=== PATIENT | female | born 1960 | race American Indian/Alaskan Native ===

== ENCOUNTER 2016-12-11 16:41 | Emergency (ER) | payer BC ==
[2016-12-11] MEDS ORDERED: NACL 0.9% 1000 ML 1,000 ML IV ONE (18:48)
[2016-12-11 19:49] LABS: Basophils % (Auto) 1.3 % (0.0-1.8); Eosinophils % (Auto) 1.9 % (0.0-4.3); Hematocrit 37.8 % (30.3-42.9); Hemoglobin 12.4 gm/dl (10.1-14.3); Mean Corpuscular HGB Conc 33 % (30-34); Mean Corpuscular Hemoglobin 33 pg (28-32); Mean Corpuscular Volume 101 fl (79-97); Platelet Count 325 K/mm3 (140-440); Red Blood Count 3.74 M/mm3 (3.65-5.03); Red Cell Distribution Width 16.7 % (13.2-15.2); White Blood Count 7.6 K/mm3 (4.5-11.0)
[2016-12-11 19:56] LABS: Alanine Aminotransferase 15 units/L (7-56); Albumin 4.3 g/dL (3.9-5); Albumin/Globulin Ratio 1.1 %; Alkaline Phosphatase 87 units/L (35-129); Anion Gap 17 mmol/L; BUN/Creatinine Ratio 42; Blood Urea Nitrogen 21 mg/dL (7-17); Calcium 9.5 mg/dL (8.4-10.2); Carbon Dioxide 25 mmol/L (22-30); Chloride 99.6 mmol/L (98-107); Glucose 118 mg/dL (65-100); Lipase 36 units/L (13-60); Potassium 3.9 mmol/L (3.6-5.0); Sodium 138 mmol/L (137-145); Total Protein 8.2 g/dL (6.3-8.2)
[2016-12-11 19:59] LABS: INR 0.89 (0.87-1.13)
[2016-12-11 20:00] LABS: Partial Thromboplastin Time 31.5 Sec. (24.2-36.6)
[2016-12-12 09:14] VITALS: BP 135/80
--- NOTE | 2016-12-12 10:47 | Emergency Department Report ---
HPI - General Chief Complaint: GI Bleed Time Seen by Provider: 12/12/16 10:30 - HPI HPI: This is a 56 year-old female who presents to the emergency department from home with complaint of bright red blood per rectum with bowel movements that occurred twice over the past 2 days. She denies any abdominal or rectal pain. She denies any past medical history. She has not taken anything for her symptoms prior to presentation. The blood was seen in the toilet bowl, on the stool and on the toilet paper. She denies any fever, chest pain, shortness of breath, dizziness or weakness. Her primary care physician is a Dr. Godinez. She says that she had a screening colonoscopy done about 3 or 4 years ago that was negative at that time. No recent travel or sick contacts at home. ED Past Medical Hx - Past Medical History Previous Medical History?: Yes Hx Hypertension: Yes - Surgical History Past Surgical History?: Yes Additional Surgical History: HYSTERECTOMY - Social History Smoking Status: Never Smoker ED Review of Systems ROS: Stated complaint: BLOODY BOWEL MOVEMENT Other details as noted in HPI Comment: All other systems reviewed and negative Constitutional: denies: chills, fever Eyes: denies: eye pain, eye discharge, vision change ENT: denies: ear pain, throat pain Respiratory: denies: cough, shortness of breath, wheezing Cardiovascular: denies: chest pain, palpitations Gastrointestinal: other (rectal bleeding). denies: abdominal pain, nausea, diarrhea Genitourinary: denies: urgency, dysuria, discharge Musculoskeletal: denies: back pain, joint swelling, arthralgia Skin: denies: rash, lesions Neurological: denies: headache, weakness, paresthesias Physical Exam - Physical Exam Vital Signs: Vital Signs 12/11/16 12/12/16 12/12/16 18:44 03:49 09:00 Temperature 99.5 F 98.4 F Pulse Rate 82 80 Respiratory 18 18 Rate Blood Pressure 155/94 140/94 O2 Sat by Pulse 100 100 100 Oximetry 12/12/16 12/12/16 12/12/16 09:01 09:02 09:04 Temperature Pulse Rate Respiratory 18 Rate Blood Pressure 135/80 135/80 135/80 O2 Sat by Pulse 100 100 100 Oximetry 12/12/16 12/12/16 12/12/16 09:06 09:07 09:10 Temperature Pulse Rate Respiratory Rate Blood Pressure 135/80 135/80 135/80 O2 Sat by Pulse 100 100 100 Oximetry Physical Exam: GENERAL: The patient is well-developed well-nourished. HENT: Normocephalic. Atraumatic. Patient has moist mucous membranes. EYES: Extraocular motions are intact. Pupils equal reactive to light bilaterally. NECK: Supple. Trachea is midline. CHEST: Clear to auscultation. No respiratory distress. HEART/CARDIOVASCULAR: Regular. There is no tachycardia. There is no gallop rub or murmur. ABDOMEN: Abdomen is soft, nontender. Patient has normal bowel sounds. There is no abdominal distention. SKIN: Skin is warm and dry. NEURO: The patient is awake, alert, and oriented. The patient is cooperative. The patient has no focal neurologic deficits. The patient has normal speech. MUSCULOSKELETAL: There is no tenderness or deformity. There is no limitation range of motion. There is no evidence of acute injury. RECTAL: No visible hemorrhoids or lesions. No gross blood. Positive stool on guaiac testing. ED Course Vital Signs 12/11/16 12/12/16 12/12/16 18:44 03:49 09:00 Temperature 99.5 F 98.4 F Pulse Rate 82 80 Respiratory 18 18 Rate Blood Pressure 155/94 140/94 O2 Sat by Pulse 100 100 100 Oximetry 12/12/16 12/12/16 12/12/16 09:01 09:02 09:04 Temperature Pulse Rate Respiratory 18 Rate Blood Pressure 135/80 135/80 135/80 O2 Sat by Pulse 100 100 100 Oximetry 12/12/16 12/12/16 12/12/16 09:06 09:07 09:10 Temperature Pulse Rate Respiratory Rate Blood Pressure 135/80 135/80 135/80 O2 Sat by Pulse 100 100 100 Oximetry ED Medical Decision Making - Lab Data Result diagrams: 12/11/16 19:09 12/11/16 19:09 - Medical Decision Making 56-year-old female presents with 2 episodes of bright red blood per rectum with bowel movements. She has no abdominal or rectal pain. Labs are unremarkable including no significant leukocytosis and normal hemoglobin level. Physical exam there is some positive stool for guaiac but no visible lesions, hemorrhoids and no gross blood. Vital signs stable throughout ED course. She had he had a negative colonoscopy 3 or 4 years ago and has been encouraged to follow up with the supervising law enforcement analyst and her primary care physician. She will return to the ER with any worsening of her symptoms or any acute distress. - Differential Diagnosis hemorrhoids, malignancy, Colitis, Diverticulosis Critical Care Time: No Critical care attestation.: If time is entered above; I have spent that time in minutes in the direct care of this critically ill patient, excluding procedure time. ED Disposition Clinical Impression: Rectal bleeding Disposition: TO HOME OR SELFCARE Is pt being admited?: No Condition: Stable Instructions: Rectal Bleeding (ED) Additional Instructions: Please follow-up with your primary care physician in the next few days. I have given you a referral for a local supervising law enforcement analyst, Dr. Mohan, in case she would like to follow up regarding your rectal bleeding. However you are free to see the supervising law enforcement analyst who did your colonoscopy a few years ago. Return to the emergency Department with any worsening of her bleeding, any severe abdominal or rectal pain, or any acute distress. Referrals: PRIMARY CAREMD [Primary Care Provider] - 3-5 Days ENRIQUETA MOHAN MD [Staff Physician] - 3-5 Days Forms: Accompanied Note, Work/School Release Form(ED) Time of Disposition: 10:47
== END 2016-12-12 11:43 | disposition home or self-care (01) ==
LOC: ED 16:41
DX: K62.5 Hemorrhage of anus and rectum (principal); I10 Essential (primary) hypertension
CPT/HCPCS: 36415; 80053; 83690; 85025; 85610; 85730; 86850; 86900; 86901; 93005; 93010; 99284